=== PATIENT | female | born 1995 | race Caucasian/White ===

== ENCOUNTER 2017-03-17 00:20 | Outpatient (CLI) | payer MEDICAID ==
[2017-03-17 01:15] LABS: BILIRUBIN,URINE NEGATIVE (NEGATIVE); PH,URINE 6.5 PH (5.0-7.5)
[2017-03-17 01:23] LABS: UR CULTURE IF IND NOT INDICATED; WBC,URINE 0-3 /HPF (0-5)
[2017-03-17 02:50] VITALS: BP 121/68
--- NOTE | 2017-03-19 08:11 | HISTORY & PHYSICAL EXAMINATION ---
DATE OF ADMISSION: 03/17/2017 DIAGNOSIS: Reported possible rupture of membranes, confirmed fern negative, possible uterine contract ions. The patient is a 22-year-old 2, para 1, at 30 weeks and 4 days gestation (per tejal boswell), who is visiting from [place] and reports several hours of uterine contractions and possible r uptured membranes after sexual intercourse. The patient has no fevers, chills, UTI symptoms, or sympt oms suggestive of pre-eclampsia. She is known high risk due to "insufficient placental bloo d flow" and is currently on mini dose aspirin. PHYSICAL EXAMINATION GENERAL: Patient alert, oriented, in no distress; toddler child lying in bed with her, in att endance. VITAL SIGNS: Blood pressure 119/60, pulse 74, temperature 97.9. HEENT: Supple neck. Moist mucous meant membranes. ABDOMEN: Nondistended. No hepatosplenomegaly. No tenderness. UTERUS: appears is slightly smaller than expected for 30 weeks. Normal resting tone. Palpation does n ot reveal any contractions. External monitor strip: Baseline 140, moderate variability, good ac celerations. No true contraction pattern. A few peaks, but no palpable contractions. EXTERNAL GENITALIA: Shaven. No lesions. VAGINA: No blood or discharge. CERVIX: 0.5, 10% effaced, high. Fern test negative. Occasional sperm. ASSESSMENT: The patient has had recent intercourse and with orgasm, probable uterine contractions whi ch have now faded. Risk of delivery judged low, given cervical state. PLAN: Patient discharged home. Recommended pelvic rest for now. To see her provider in [place]. ADDENDUM: Urinalysis clear, leukocyte esterase negative, nitrite negative, blood negative, protein ne gative. Screen for drugs of abuse completely negative. JOB #: [id number] EXT JOB #:[id number]
== END 2017-03-17 02:05 | disposition home or self-care (01) ==
LOC: WFO 00:20 → OB 00:21 → WFO 02:05
PROVIDERS: ATTEND Obstetrics & Gynecology
DX: Z34.83 Encounter for supervision of other normal pregnancy, third trimester (principal)
CPT/HCPCS: 80306; 81001; 87086; 99214